=== PATIENT | male | born 1965 | race Two or more races ===

== ENCOUNTER 2016-10-28 18:38 | Emergency (ER) | payer OTHER ==
[~2016-10-28] VITALS: Ht 162.6 cm; Wt 93.0 kg
[2016-10-29 07:54] VITALS: BP 152/89
== END 2016-10-29 09:15 | disposition home or self-care (01) ==
LOC: ER 18:46
DX: F29 Unspecified psychosis not due to a substance or known physiological condition (principal); F20.9 Schizophrenia, unspecified; R45.851 Suicidal ideations; F41.9 Anxiety disorder, unspecified; F17.210 Nicotine dependence, cigarettes, uncomplicated